=== PATIENT | female | born 1945 | race Asian ===

== ENCOUNTER 2016-11-28 08:21 | Emergency (ER) | payer MEDICARE, OTHER ==
[~2016-11-28] VITALS: Ht 157.5 cm; Wt 54.5 kg
[~2016-11-28 08:21] MED LIST: ANTIHYPERTENSIVE PO; SIMV5TAB6 PO
[2016-11-28] MEDS ORDERED: VITAD1000 PO (08:30)
[2016-11-28] MEDS ORDERED: LOSA50TA37 PO (08:30)
[2016-11-28] MEDS ORDERED: ASPI81 PO (08:30)
[2016-11-28] MEDS ORDERED: MONT10TA21 PO (08:30)
[2016-11-28] MEDS ORDERED: AMLO-511 PO (08:30)
[2016-11-28] MEDS ORDERED: CALC1TAB90 PO (08:30)
[2016-11-28 10:57] LABS: BASOPHILS # (AUTO) 0.03 K/uL (0.00-0.20); BASOPHILS % (AUTO) 0.3 % (0.0-2.0); EOSINOPHILS # (AUTO) 0.12 K/uL (0.00-0.70); EOSINOPHILS % (AUTO) 1.59 % (1.0-6.0); HEMATOCRIT 44.9 % (36-46); HEMOGLOBIN 15.1 g/dL (12.0-16.0); LYMPHOCYTES # (AUTO) 1.9 K/uL (1.0-4.8); MEAN CORPUSCULAR HEMOGLOBIN 31.2 pg (26.0-34.0); MEAN CORPUSCULAR HGB CONC 33.6 G/dL (31.0-37.0); MEAN CORPUSCULAR VOLUME 93 fL (80-100); MONOCYTES # (AUTO) 0.2 K/uL (0.1-1.0); MONOCYTES % (AUTO) 2.2 % (2.0-9.0); NEUTROPHILS # (AUTO) 5.5 K/uL (1.8-7.7); NEUTROPHILS % (AUTO) 71.8 % (40.0-70.0); PLATELET COUNT (AUTO) 210 K/uL (150-450); RED BLOOD CELL COUNT(AUTO) 4.83 MIL/uL (4.00-5.20); RED CELL DISTRIBUTION WIDTH 13.5 % (11.5-14.5); WHITE BLOOD COUNT (AUTO) 7.7 K/uL (4.5-11.0)
[2016-11-28 11:04] LABS: ANION GAP 12 mmol/L (8-16); CALCIUM, TOTAL 9.5 mg/dL (8.8-10.5); CARBON DIOXIDE 25 mmol/L (22-29); CHLORIDE 103 mmol/L (98-107); CREATININE 0.71 mg/dL (0.60-1.30); GLOMERULAR FILTR. RATE CALC > 60 mL/min (>60); POTASSIUM 4.4 mmol/L (3.5-5.1); SODIUM SERUM 140 mmol/L (136-145); UREA NITROGEN, BLOOD 11 mg/dL (7-18)
[2016-11-28 11:10] LABS: ALANINE AMINOTRANSFERASE 66 U/L (12-78); ALBUMIN 4.1 g/dL (3.4-5.0); ASPARTATE AMINOTRANSFERASE 38 U/L (15-37); BILIRUBIN,TOTAL 1.1 mg/dL (0.1-1.0); TOTAL PROTEIN, SERUM 7.3 g/dL (6.4-8.2)
[2016-11-28] MEDS ORDERED: MECLIZINE HCL 25 MG TABLET PO ONE (11:30)
[2016-11-28] MEDS ORDERED: SODIUM CHLORIDE 0.9% 1,000 ML IV ONE (11:30)
[2016-11-28 11:34] LABS: APPEARANCE,URINE CLEAR (CLEAR); GLUCOSE, URINE (UA) NEGATIVE (NEGATIVE); KETONES,URINE NEGATIVE (NEGATIVE); LEUKOCYTE ESTERASE ,URINE TRACE (NEGATIVE); OCCULT BLOOD,URINE NEGATIVE (NEGATIVE); PROTEIN,URINE NEGATIVE (NEGATIVE)
[2016-11-28 11:36] LABS: ADD UA MICROSCOPIC YES
[2016-11-28 11:38] LABS: RBC,URINE None Seen /HPF (0-2); WBC,URINE 0-2 /HPF (0-5)
[2016-11-28 14:24] VITALS: BP 135/62
== END 2016-11-28 15:02 | disposition home or self-care (01) ==
LOC: EMS 08:22
DX: R42 Dizziness and giddiness (principal); I10 Essential (primary) hypertension; E78.00 Pure hypercholesterolemia, unspecified; Z79.82 Long term (current) use of aspirin; Z79.899 Other long term (current) drug therapy
CPT/HCPCS: 36415; 70450; 80053; 81001; 83880; 84484; 85025; 93005; 96360; 99285; J7030

== ENCOUNTER 2023-01-25 12:49 | Emergency (ER) | payer MEDICARE, OTHER ==
[~2023-01-25] VITALS: Ht 157.5 cm; Wt 47.3 kg
[~2023-01-25 12:49] MED LIST changes: +AMLO-257 PO; -ANTIHYPERTENSIVE PO; +ASPI-1450 PO; +CALC1TAB90 PO; +CHOL100018 PO; +LOSA-382 PO; +MONT-35 PO; +SIMV5TAB59 PO; -SIMV5TAB6 PO
[2023-01-25 13:11] VITALS: BP 147/83; PULSE 99; RESP 16; TEMP 99.4
[2023-01-25 13:28] LABS: COVID AG,FIA SOURCE NASAL SWAB
[2023-01-25 13:57] LABS: INFLUENZA TYPE A NEGATIVE FOR TYPE A (NEGATIVE); INFLUENZA TYPE B NEGATIVE FOR TYPE B (NEGATIVE)
[2023-01-25 14:06] LABS: RAPID GROUP A STREP NEGATIVE (NEGATIVE)
[2023-01-25 14:09] LABS: SARS-COV2 (COVID) ANTIGEN,FIA Positive (Negative)
[2023-01-25] MEDS ORDERED: NIRM1TAB4 PO (15:01)
== END 2023-01-25 15:46 | disposition home or self-care (01) ==
LOC: EMS 12:54
DX: U07.1 COVID-19 (principal); E78.00 Pure hypercholesterolemia, unspecified; I10 Essential (primary) hypertension
CPT/HCPCS: 87430; 87804; 99283